=== PATIENT | female | born 1995 | race Caucasian/White ===

== ENCOUNTER 2021-05-21 09:14 | Inpatient (IN) ==
[2021-05-21] MEDS ORDERED: OXYTOCIN 30 UNITS/500 ML BAG IV PRN ×3 (09:21→23:59)
[2021-05-21 09:43] LABS: Hemoglobin 12.5 g/dL (12.0-16.0); Mean Corpuscular Hemoglobin 32.1 pg (25-34); Mean Corpuscular Hgb Conc 33.8 g/dL (32-36); Mean Corpuscular Volume 95.1 fL (80-100); Platelet Count 152 K/uL (130-400); RDW Coefficient of Variation 13.4 % (11.5-14.5); RDW Standard Deviation 46.8 fL (36.4-46.3); Red Blood Count 3.89 M/uL (4.2-5.4); White Blood Count 11.34 K/uL (4.8-10.8)
--- NOTE | 2021-05-21 09:50 | History & Physical Report ---
Date of Service May 21, 2021 Assessment & Plan (1) Insulin controlled gestational diabetes mellitus (GDM) during : (2) with 39 completed weeks gestation: (3) Large for gestational age fetus affecting management of mother: Plan: Admit. Plan pitocin induction, arom when indicated, epidural on demand. I explained again the entire situation with use of the video machine pack assembler. Discussed many possible options. 1. moves through labor without difficulty and able to push out fetus. Discussed would not instrument given concern for size of baby and risk for shoulder dystocia. If FTD would plan c/s. 2. discussed possibility for ftp and need for iupc to monitor pitocin. If then adequate and does not progress or cannot get adequate to progress would proceed with c/s. Again discussed can never tell whether a baby will fit out of a pelvis until try. Did discuss the possible risk of shoulder dystocia. Discussed the error of measurement of recent us was +/-20oz. She expressed that she would like attempt a anna. Declines primary c/s. Explained why I might recommend epidural to relax pelvis even if she was really not wanting one or not ready for one. Discussed that probably won't get very uncomfortable until after arom/rom. Discussed could get epidural prior to that if she thought she was going to want one for the labor. Patient understands that our anesthesia providers today are male. Will monitor blood sugars hourly. Admission and Anticipated Discharge Date Admission Date: May 21, 2021 History of Present Illness Chief Complaint: induction Primary Care Provider: Mena Sunshine PA-C Patient is a 26yo[place] female who presents to labor and delivery for induction of labor at 39 4/7 weeks secondary to insulin requiring GDM and suspected lga . complicated by GDM requiring insulin. Baby has always measured a little large. US at 37 6/7 weeks showed AC and EFW in 94 and 93%, with efw of *# 6oz, +/- 20 oz. She has had a successful vaginal delivery in the past of 6#6oz. Her cervix was not favorable and presented last evening for Santa bulb. Patient notes this fell out about 7am. Notes some occasional contractions and cramping after the bulb. +fm. no lof/vb. Lab Results OB Labs: Blood Type O Positive 10/14/20 Antibody Screen NEGATIVE 10/14/20 Hemoglobin 11.6 g/dL (12.0-16.0) L 03/19/21 Hematocrit 33.8 % (37-47) L 03/19/21 Mean Corpuscular Volume 90.8 fL (80-100) 10/14/20 Platelet Count 321 K/uL (130-400) 10/14/20 Rubella IgG Antibody Immune (Immune) 10/14/20 Rapid Plasma Reagin Nonreactive (Nonreactive) 10/14/20 Hepatitis B Surface Antigen Neg (Neg) 10/14/20 HIV (1&2) Ab and P24 Ag, 4th Gener Neg (Neg) 10/14/20 Glucose 1 Hour 50 gm Load 187 mg/dl (70-130) H 12/12/20 OB Optional Labs: Chlamydia trachomatis RNA NOT DETECTED (NOT DETECTED) 10/14/20 Neisseria gonorrhoeae RNA NOT DETECTED (NOT DETECTED) 10/14/20 Thyroid Stimulating Hormone (TSH) 1.280 uIu/ml (0.300-4.500) 07/24/20 Labs Reviewed: declines genetics Allergies Allergy/AdvReac Type Severity Reaction Status Date / Time No Known Allergies Allergy Verified 05/20/21 08:37 Home Medications Medication Instructions Recorded Confirmed Type acetone (urine) test (Ketone Urine #50 ea 03/27/21 05/20/21 Rx Test) blood sugar diagnostic (OneTouch #150 ea 03/27/21 05/20/21 Rx Verio test strips) blood-glucose meter (OneTouch #1 ea 03/27/21 05/20/21 Rx Verio Flex meter) lancets 33 gauge (OneTouch Delica #150 ea 03/27/21 05/20/21 Rx Plus Lancet) pen needle, diabetic 32 gauge x #100 ea 04/24/21 05/20/21 Rx 5/32" (BD Ultra-Fine Eboni Pen Needle) vits no.124-ferrous fum 1 tab PO DAILY 05/20/21 05/20/21 History 27 mg iron-folic acid 800 mcg tablet ( Vitamin) Patient History Medical History Varicella vaccination Surgical History S/P wisdom tooth extraction Family History Denies family history of Ovarian cancer Prostate cancer Myocardial infarction Breast cancer Colorectal cancer Social History Smoking Status: Never smoker Second Hand Exposure: No; Hx Alcohol Use: No Hx Substance Use: No Preferred Language: Kiswahili Communication Ability: Effective Hypoid Gear Tester Required: Yes Beliefs That Will Affect Care: Hoahaoism Hoahaoism Beliefs: prefers only female providers. Understands anesthesia providers may be male and agreeable. 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, no abnl paps Review of Systems All systems reviewed & are unremarkable except as noted in HPI & below Physical Exam Constitutional: WD/WN, vitals as above Gastrointestinal (Abdomen): soft, nt, gravid Psychiatric: A+Ox3, euthymic affect Genitourinary: cx--3.5/50/-2.mid/soft toco--occasional contraction efm--130s with mod variability, accels to 150s, no decels Results & Data ([facility]) Vital Signs (Past 12 Hours) Vital Signs Pulse BP 05/21/21 09:26 93 H 104/65 Code Status & VTE Plan VTE Prophylaxis Plan VTE Prophylaxis will be ordered: No Coding Level of Care Code None Diagnoses Insulin controlled gestational diabetes mellitus (GDM) during O24.414 with 39 completed weeks gestation Z3A.39 Large for gestational age fetus affecting management of mother O36.60X0
[2021-05-21] MEDS: LACTATED RINGER'S 1,000 ML IV PRN ×4 (10:32→21:33)
[2021-05-21] MEDS ORDERED: INSULIN REGULAR 250 UNITS in SODIUM CHLORIDE 0.9% 247.5 ML IV PRN (13:26)
[2021-05-21] MEDS ORDERED: SODIUM CHLORIDE 0.9% 1000ML 1,000 ML IV PRN (13:26)
[2021-05-21] MEDS ORDERED: DEXTROSE 50% 50 ML SYRINGE IV PRN (13:26)
--- NOTE | 2021-05-21 13:26 | Labor Progress Brief Note ---
Date of Service May 21, 2021 Subjective patient is noting some contractions. Assessment & Plan (1) Insulin controlled gestational diabetes mellitus (GDM) during : (2) Large for gestational age fetus affecting management of mother: Plan: discussed situation with the patient using the visual spanish interpreter/translator. My recommendation is to proceed with arom as really cannot do anything with pitocin at this point. She was ok with proceeding with that. Declines epidural prior, may have at any time. Fetus category one. BS are in the 60s pretty consistently despite juice, so will start diabetic protocol. She is asymptomatic. Admission and Anticipated Discharge Date Admission Date: May 21, 2021 Physical Exam Physical Exam: cx--unchanged arom--clear toco--q1-2min, pit at 8 , episodes of tachysystole efm--category one Results & Data ([facility]) Vital Signs (Past 12 Hours) Vital Signs Temp Pulse Resp BP 05/21/21 12:42 36.7 C 73 20 100/60 05/21/21 11:41 78 98/55 L 05/21/21 10:34 86 99/59 L 05/21/21 09:44 36.7 C 20 05/21/21 09:26 93 H 104/65 Coding Level of Care Code None Diagnoses Insulin controlled gestational diabetes mellitus (GDM) during O24.414 Large for gestational age fetus affecting management of mother O36.60X0
[2021-05-21] MEDS: DEXTROSE 5% 1,000 ML IV PRN ×2 (13:33→22:13)
[2021-05-21] MEDS ORDERED: ePHEDrine sulfate 50 MG/ML AMP ONE (16:13)
[2021-05-21] MEDS ORDERED: fentaNYL 2MCG/ML ROPIVACAINE 1.25MG/ML 100 ML BAG EPI ONE (16:14)
[2021-05-21] MEDS ORDERED: SODIUM CHLORIDE 0.9% INJ 10 ML VIAL ONE (16:14)
[2021-05-21] MEDS ORDERED: fentaNYL citrate 100 MCG/2 ML VIAL ONE (16:14)
[2021-05-21] MEDS ORDERED: BUPIVACAINE 0.25% 30 ML VIAL ONE (16:14)
--- NOTE | 2021-05-21 16:19 | Labor Progress Brief Note ---
Date of Service May 21, 2021 Subjective Patient uncomfortable and desires to be checked. Assessment & Plan (1) Large for gestational age fetus affecting management of mother: (2) Insulin controlled gestational diabetes mellitus (GDM) during : Plan: Discussed situation with patient using her to help interpret. Discussed it may yet be several hours. She requests epidural and will proceed. Fetus c ategory one. Admission and Anticipated Discharge Date Admission Date: May 21, 2021 Physical Exam Physical Exam: cx--/-2 toco--q2-3min, pit at 8 efm--130s with mod variability, accels to 160s, no decels Results & Data ([facility]) Vital Signs (Past 12 Hours) Vital Signs Temp Pulse Resp BP Pulse Ox 05/21/21 16:12 85 99 05/21/21 15:15 36.6 C 14 05/21/21 15:12 78 107/69 05/21/21 14:43 36.7 C 85 20 106/66 05/21/21 13:42 78 113/62 05/21/21 12:42 36.7 C 73 20 100/60 05/21/21 11:41 78 98/55 L 05/21/21 10:34 86 99/59 L 05/21/21 09:44 36.7 C 20 05/21/21 09:26 93 H 104/65 Coding Level of Care Code None Diagnoses Large for gestational age fetus affecting management of mother O36.60X0 Insulin controlled gestational diabetes mellitus (GDM) during O24.414
--- NOTE | 2021-05-21 16:25 | Anesthesiology Consultation ---
Date of Service May 21, 2021 Assessment & Plan (1) Encounter for pre-operative examination: Chart Review Chart Review: Acceptable Risk for Labor Epidural History Height/Weight Height: 5 ft 1.02 in Weight: 73.936 kg Allergies Allergy/AdvReac Type Severity Reaction Status Date / Time No Known Allergies Allergy Verified 05/20/21 08:37 Medications Home Medications Medication Instructions Recorded Confirmed Last Taken acetone (urine) test (Ketone Urine #50 ea 03/27/21 05/20/21 Unknown Test) blood sugar diagnostic (OneTouch #150 ea 03/27/21 05/20/21 Unknown Verio test strips) blood-glucose meter (OneTouch #1 ea 03/27/21 05/20/21 Unknown Verio Flex meter) lancets 33 gauge (OneTouch Delica #150 ea 03/27/21 05/20/21 Unknown Plus Lancet) pen needle, diabetic 32 gauge x #100 04/24/21 05/20/21 Unknown 5/32" (BD Ultra-Fine Eboni Pen Needle) vits no.124-ferrous fum 1 tab PO DAILY 05/20/21 05/21/21 05/20/21 08:00 27 mg iron-folic acid 800 mcg tablet ( Vitamin) Active Medications Generic Name Dose Route Start Last Admin Trade Name Freq PRN Reason Stop Dose Admin Lactated Ringer's 1,000 mls @ 125 mls/hr 05/21/21 09:21 05/21/21 14:47 Lr IV 05/23/21 09:20 125 mls/hr .Q8H PRN Administration L&D Protocol Protocol Oxytocin 30 units in 500 mls @ 8 mls/hr 05/21/21 09:31 05/21/21 12:20 Pitocin IV 05/23/21 09:30 0.48 units/hr .Q24H PRN 8 mls/hr Labor Induction/Augmentation Titration Protocol 0.48 UNITS/HR Dextrose 1,000 mls @ 100 mls/hr 05/21/21 13:26 05/21/21 14:46 D5w IV 06/20/21 13:25 100 mls/hr .Q10H PRN Infusion BSG 180 or below Protocol Past Medical History Medical History Varicella vaccination Past Family History Family History Denies family history of Ovarian cancer Prostate cancer Myocardial infarction Breast cancer Colorectal cancer Past Surgical History Surgical History S/P wisdom tooth extraction Social History Smoking Status: Never smoker Hx Alcohol Use: No Hx Substance Use: No substance use type: does not use Physical Exam Vital Signs Last Vital Signs Temp 36.6 C 05/21/21 15:15 Pulse 84 05/21/21 16:22 Resp 14 05/21/21 15:15 BP 107/69 05/21/21 15:12 Pulse Ox 99 05/21/21 16:22 Testing Laboratory Results 05/21/21 09:29 05/21/21 05/21/21 05/21/21 15:31 14:40 13:36 POC Glucose 80 84 73 05/21/21 05/21/21 05/21/21 13:21 13:20 12:16 POC Glucose 67 L* 65 L* 83 05/21/21 05/21/21 05/21/21 11:13 10:54 10:52 POC Glucose 70 65 L* 67 L* 05/21/21 09:51 POC Glucose 84
[2021-05-21] MEDS ORDERED: ePHEDrine sulfate 50 MG/ML AMP IV PRN (16:55)
[2021-05-21] MEDS ORDERED: fentaNYL 2MCG/ML ROPIVACAINE 1.25MG/ML 100 ML BAG EPI PRN (16:55)
[2021-05-21] MEDS ORDERED: NALOXONE HCL 0.4 MG/1 ML VIAL/CARP IV PRN (16:55)
[2021-05-21] MEDS ORDERED: ONDANSETRON INJ 2 MG/ML 2 ML VIAL IV PRN (16:55)
[2021-05-21] MEDS ORDERED: NALOXONE HCL 1 MG in SODIUM CHLORIDE 0.9% 1000ML 1,000 ML IV PRN (16:55)
--- NOTE | 2021-05-21 19:00 | Labor Progress Brief Note ---
Date of Service May 21, 2021 Subjective comfortable after epidural Assessment & Plan (1) Large for gestational age fetus affecting management of mother: (2) Insulin controlled gestational diabetes mellitus (GDM) during : Plan: continue current management. Is making slow change. Recheck in 1-2 hours, if no change then, plan iupc. Had previously discussed the possible need for this with the patient. Fetus category one. Admission and Anticipated Discharge Date Admission Date: May 21, 2021 Physical Exam Physical Exam: cx--/-2, some molding toco--q2-3min, pit at 8 efm--130s with mod variability, accels present , no decels. Results & Data ([facility]) Vital Signs (Past 12 Hours) Vital Signs Temp Pulse Resp BP Pulse Ox 05/21/21 18:52 79 99 05/21/21 18:48 84 92/59 L 05/21/21 18:47 71 98 05/21/21 18:42 69 98 05/21/21 18:37 69 99 05/21/21 18:34 87 96/56 L 05/21/21 18:32 98 H 99 05/21/21 18:30 18 05/21/21 18:27 72 98 05/21/21 18:22 69 99 05/21/21 18:17 66 103/62 98 05/21/21 18:12 69 99/58 L 98 05/21/21 18:07 73 98/60 L 99 05/21/21 18:02 74 98/55 L 99 05/21/21 18:00 18 05/21/21 17:57 75 92/51 L 99 05/21/21 17:53 74 99/57 L 05/21/21 17:52 79 99 05/21/21 17:47 68 97/55 L 99 05/21/21 17:42 74 102/59 L 99 05/21/21 17:37 70 101/55 L 99 05/21/21 17:33 75 98/57 L 05/21/21 17:32 75 99 05/21/21 17:30 16 05/21/21 17:28 82 95/53 L 05/21/21 17:27 81 100 05/21/21 17:22 74 96/54 L 99 05/21/21 17:17 78 99/55 L 99 05/21/21 17:14 83 100/61 05/21/21 17:12 82 99 05/21/21 17:07 79 100 05/21/21 17:06 75 102/58 L 05/21/21 17:04 74 101/58 L 05/21/21 17:02 72 101/58 L 100 05/21/21 17:00 36.7 C 77 18 91/56 L 05/21/21 16:58 75 88/51 L 05/21/21 16:57 73 99 05/21/21 16:56 78 93/50 L 05/21/21 16:54 77 91/54 L 05/21/21 16:52 64 93/56 L 99 05/21/21 16:50 71 100/62 05/21/21 16:48 77 104/57 L 05/21/21 16:47 96 H 99 05/21/21 16:42 76 100 05/21/21 16:41 87 89 L 05/21/21 16:37 88 100 05/21/21 16:32 96 H 100 05/21/21 16:27 76 99 05/21/21 16:22 84 99 05/21/21 16:17 88 100 05/21/21 16:12 85 99 05/21/21 15:15 36.6 C 14 05/21/21 15:12 78 107/69 05/21/21 14:43 36.7 C 85 20 106/66 05/21/21 13:42 78 113/62 05/21/21 12:42 36.7 C 73 20 100/60 05/21/21 11:41 78 98/55 L 05/21/21 10:34 86 99/59 L 05/21/21 09:44 36.7 C 20 05/21/21 09:26 93 H 104/65 Coding Level of Care Code None Diagnoses Large for gestational age fetus affecting management of mother O36.60X0 Insulin controlled gestational diabetes mellitus (GDM) during O24.414
--- NOTE | 2021-05-21 20:07 | Labor Progress Brief Note ---
Date of Service May 21, 2021 Subjective comfortable after epidural, but starting to feel some contractions. Assessment & Plan (1) Large for gestational age fetus affecting management of mother: (2) Insulin controlled gestational diabetes mellitus (GDM) during : Plan: continue current management. Continues to make change. Fetus category one. Admission and Anticipated Discharge Date Admission Date: May 21, 2021 Physical Exam Physical Exam: cx--7/100/-1, some molding toco--q2-3min, pit at 10 efm--130s with mod variability, accels present , no decels. Constitutional: WD/WN, vitals as above Psychiatric: A+Ox3, euthymic affect Results & Data ([facility]) Vital Signs (Past 12 Hours) Vital Signs Temp Pulse Resp BP Pulse Ox 05/21/21 20:03 70 108/63 99 05/21/21 19:58 67 99 05/21/21 19:53 66 98 05/21/21 19:48 70 97/59 L 99 05/21/21 19:43 85 98 05/21/21 19:38 65 99 05/21/21 19:33 88 91/55 L 99 05/21/21 19:30 16 05/21/21 19:28 69 99 05/21/21 19:26 36.8 C 05/21/21 19:23 70 99 05/21/21 19:18 108 H 95/59 L 98 05/21/21 19:12 78 98 05/21/21 19:07 70 98 05/21/21 19:03 77 94/59 L 05/21/21 19:02 87 98 05/21/21 19:00 16 05/21/21 18:57 83 98 05/21/21 18:52 79 99 05/21/21 18:48 84 92/59 L 05/21/21 18:47 71 98 05/21/21 18:42 69 98 05/21/21 18:37 69 99 05/21/21 18:34 87 96/56 L 05/21/21 18:32 98 H 99 05/21/21 18:30 18 05/21/21 18:27 72 98 05/21/21 18:22 69 99 05/21/21 18:17 66 103/62 98 05/21/21 18:12 69 99/58 L 98 05/21/21 18:07 73 98/60 L 99 05/21/21 18:02 74 98/55 L 99 05/21/21 18:00 18 05/21/21 17:57 75 92/51 L 99 05/21/21 17:53 74 99/57 L 05/21/21 17:52 79 99 05/21/21 17:47 68 97/55 L 99 05/21/21 17:42 74 102/59 L 99 05/21/21 17:37 70 101/55 L 99 05/21/21 17:33 75 98/57 L 05/21/21 17:32 75 99 05/21/21 17:30 16 05/21/21 17:28 82 95/53 L 05/21/21 17:27 81 100 05/21/21 17:22 74 96/54 L 99 05/21/21 17:17 78 99/55 L 99 05/21/21 17:14 83 100/61 05/21/21 17:12 82 99 05/21/21 17:07 79 100 05/21/21 17:06 75 102/58 L 05/21/21 17:04 74 101/58 L 05/21/21 17:02 72 101/58 L 100 05/21/21 17:00 36.7 C 77 18 91/56 L 05/21/21 16:58 75 88/51 L 05/21/21 16:57 73 99 05/21/21 16:56 78 93/50 L 05/21/21 16:54 77 91/54 L 05/21/21 16:52 64 93/56 L 99 05/21/21 16:50 71 100/62 05/21/21 16:48 77 104/57 L 05/21/21 16:47 96 H 99 05/21/21 16:42 76 100 05/21/21 16:41 87 89 L 05/21/21 16:37 88 100 05/21/21 16:32 96 H 100 05/21/21 16:27 76 99 05/21/21 16:22 84 99 05/21/21 16:17 88 100 05/21/21 16:12 85 99 05/21/21 15:15 36.6 C 14 05/21/21 15:12 78 107/69 05/21/21 14:43 36.7 C 85 20 106/66 05/21/21 13:42 78 113/62 05/21/21 12:42 36.7 C 73 20 100/60 05/21/21 11:41 78 98/55 L 05/21/21 10:34 86 99/59 L 05/21/21 09:44 36.7 C 20 05/21/21 09:26 93 H 104/65 Coding Level of Care Code None Diagnoses Large for gestational age fetus affecting management of mother O36.60X0 Insulin controlled gestational diabetes mellitus (GDM) during O24.414
--- NOTE | 2021-05-21 22:04 | Labor Progress Brief Note ---
Date of Service May 21, 2021 Subjective notes contractions in upper uterus and on left, declines increasing epidural. Assessment & Plan (1) Large for gestational age fetus affecting management of mother: Plan: Will begin stage two. fetus category two but reassuring. Admission and Anticipated Discharge Date Admission Date: May 21, 2021 Physical Exam Physical Exam: cx--c/c/+1 toco--q1-2min, pit at 10 efm--130s with mod variability, small accels, variables with contractions [facility] & Data ([facility]) Vital Signs (Past 12 Hours) Vital Signs Temp Pulse Resp BP Pulse Ox 05/21/21 21:58 87 100 05/21/21 21:53 68 99 05/21/21 21:48 64 103/66 98 05/21/21 21:43 66 98 05/21/21 21:38 75 99 05/21/21 21:33 75 99 05/21/21 21:32 97 H 102/64 05/21/21 21:30 16 05/21/21 21:28 70 99 05/21/21 21:23 80 99 05/21/21 21:18 70 99 05/21/21 21:17 78 103/58 L 05/21/21 21:15 36.7 C 05/21/21 21:13 80 99 05/21/21 21:08 74 100 05/21/21 21:03 72 97/62 L 99 05/21/21 21:00 18 05/21/21 20:58 83 99 05/21/21 20:53 72 99 05/21/21 20:48 70 110/63 99 05/21/21 20:43 74 98 05/21/21 20:38 67 99 05/21/21 20:33 73 99 05/21/21 20:32 73 108/64 05/21/21 20:30 16 05/21/21 20:28 73 99 05/21/21 20:23 69 99 05/21/21 20:19 75 102/63 05/21/21 20:18 72 98 05/21/21 20:13 84 98 05/21/21 20:08 65 99 05/21/21 20:03 70 108/63 99 05/21/21 20:00 18 05/21/21 19:58 67 99 05/21/21 19:53 66 98 05/21/21 19:48 70 97/59 L 99 05/21/21 19:43 85 98 05/21/21 19:38 65 99 05/21/21 19:33 88 91/55 L 99 05/21/21 19:30 16 05/21/21 19:28 69 99 05/21/21 19:26 36.8 C 05/21/21 19:23 70 99 05/21/21 19:18 108 H 95/59 L 98 05/21/21 19:12 78 98 05/21/21 19:07 70 98 05/21/21 19:03 77 94/59 L 05/21/21 19:02 87 98 05/21/21 19:00 16 05/21/21 18:57 83 98 05/21/21 18:52 79 99 05/21/21 18:48 84 92/59 L 05/21/21 18:47 71 98 05/21/21 18:42 69 98 05/21/21 18:37 69 99 05/21/21 18:34 87 96/56 L 05/21/21 18:32 98 H 99 05/21/21 18:30 18 05/21/21 18:27 72 98 05/21/21 18:22 69 99 05/21/21 18:17 66 103/62 98 05/21/21 18:12 69 99/58 L 98 05/21/21 18:07 73 98/60 L 99 05/21/21 18:02 74 98/55 L 99 05/21/21 18:00 18 05/21/21 17:57 75 92/51 L 99 05/21/21 17:53 74 99/57 L 05/21/21 17:52 79 99 05/21/21 17:47 68 97/55 L 99 05/21/21 17:42 74 102/59 L 99 05/21/21 17:37 70 101/55 L 99 05/21/21 17:33 75 98/57 L 05/21/21 17:32 75 99 05/21/21 17:30 16 05/21/21 17:28 82 95/53 L 05/21/21 17:27 81 100 05/21/21 17:22 74 96/54 L 99 05/21/21 17:17 78 99/55 L 99 05/21/21 17:14 83 100/61 05/21/21 17:12 82 99 05/21/21 17:07 79 100 05/21/21 17:06 75 102/58 L 05/21/21 17:04 74 101/58 L 05/21/21 17:02 72 101/58 L 100 05/21/21 17:00 36.7 C 77 18 91/56 L 05/21/21 16:58 75 88/51 L 05/21/21 16:57 73 99 05/21/21 16:56 78 93/50 L 05/21/21 16:54 77 91/54 L 05/21/21 16:52 64 93/56 L 99 05/21/21 16:50 71 100/62 05/21/21 16:48 77 104/57 L 05/21/21 16:47 96 H 99 05/21/21 16:42 76 100 05/21/21 16:41 87 89 L 05/21/21 16:37 88 100 05/21/21 16:32 96 H 100 05/21/21 16:27 76 99 05/21/21 16:22 84 99 05/21/21 16:17 88 100 05/21/21 16:12 85 99 05/21/21 15:15 36.6 C 14 05/21/21 15:12 78 107/69 05/21/21 14:43 36.7 C 85 20 106/66 05/21/21 13:42 78 113/62 05/21/21 12:42 36.7 C 73 20 100/60 05/21/21 11:41 78 98/55 L 05/21/21 10:34 86 99/59 L Coding Level of Care Code None Diagnoses Large for gestational age fetus affecting management of mother O36.60X0
[2021-05-21] MEDS ORDERED: oxyCODONE/ACETAMINOPHEN 5mg/325mg TAB PO PRN (23:58)
[2021-05-21] MEDS ORDERED: ACETAMINOPHEN 325 MG TAB PO PRN (23:58)
[2021-05-21] MEDS ORDERED: bisacodyL 10 MG SUPP PR PRN (23:59)
[2021-05-21] MEDS ORDERED: SUPERCREAM 0.870% 15 GM JAR EXT PRN (23:59)
[2021-05-21] MEDS ORDERED: METHYLERGONOVINE MALEATE 0.2 MG/ML AMP IM ONE (23:59)
[2021-05-21] MEDS ORDERED: BENZOCAINE 20% AER SPR 82.5 GM CAN EXT PRN (23:59)
[2021-05-21] MEDS ORDERED: HYDROCORTISONE ACETATE 25 MG SUPP PR PRN (23:59)
[2021-05-21] MEDS ORDERED: DIPHTHERIA/TETANUS/PERTUSSIS 0.5 ML SYR/VIAL IM ONE (23:59)
[2021-05-22] MEDS ORDERED: BENZOCAINE 20% AER SPR 82.5 GM CAN EXT PRN
[2021-05-22] MEDS ORDERED: SUPERCREAM 0.870% 15 GM JAR EXT PRN
--- NOTE | 2021-05-22 00:05 | Delivery Summary ---
Vaginal Delivery Summary Date of Service May 22, 2021 Pre-operative Diagnosis: at 39 4/7 weeks insulin requiring GDM LGA Post-operative Diagnosis: same Procedure: kowalski bulb pitocin induciton arom epidural third degree laceration and repair EBL: 400cc Anesthesia: epidural Procedure: The patient pushed for 1.5 hours to deliver a viable male infant in juan position. thick meconium noted after delivery of the head. Nuchal cord x 1 easily reduced. The anterior shoulder was then easily delivered and the rest of the baby followed. The baby was vigorous. The nose and mouth were bulb suctioned and the was placed in the maternal abdomen for drying and attention. Cord was clamped and cut at one minute of life. Cord blood and segment obtained. Placenta delivered spontaneous, intact with a three vessel cord. Cervix/sulci/rectum were intact. A third degree perineal laceration was repaired in the normal standard fashion with 2-0 vicryl for the sphincter and 3- 0 for the vagina and perineum. Hemostasis obtained with dilute pitocin and fundal massage and one dose of IM methergine. Apgars were 9/9. Mother and baby doing well at the end of the delivery. Vaginal Delivery Summary and 3rd Degree LAC [facility] Vaginal Delivery Charge Vaginal Delivery Codes: 50200 global code for the antepartum, delivery, and post- Delivery Type Details: and 3rd Degree LAC
[2021-05-22] MEDS ORDERED: ONDANSETRON INJ 2 MG/ML 2 ML VIAL IV PRN (00:29)
[2021-05-22 06:28] LABS: Hematocrit (blood only) 38.5 % (37-47); Hemoglobin 12.9 g/dL (12.0-16.0)
[2021-05-22] MEDS: IBUPROFEN 600 MG TAB PO PRN ×4 (06:43→21:49)
--- NOTE | 2021-05-22 07:28 | Obstetrical Progress Note ---
Date of Service May 22, 2021 Assessment & Plan (1) Spontaneous vaginal delivery: (2) Third degree laceration of perineum during delivery, : Doing well this morning. Discussed pain management for her bottom. Encouraged ambulation. Questions answered with visual primary care md. Subjective Ambulation: limited ambulation Voiding: no voiding problems Passing Gas:: Yes Diet Tolerance:: regular diet Lochia:: Small Feeding Type:: breast feeding Patient notes her bottom is very sore. Has not been using ice. Tolerated diet. Voided without difficulty. Feels bloated. Physical Exam Constitutional WD/WN, vitals as above Neck trachea midline, no thyromegaly Respiratory normal respiratory effort, lungs clear to auscultation Cardiovascular RRR, no murmur, no edema Extremities: + edema (tr-+1); no calf tenderness Gastrointestinal (Abdomen) normal bowel sounds, soft, nontender, no hepatosplenomegaly ff/nt at u Psychiatric A+Ox3, euthymic affect Results & Data ([facility]) Vital Signs (Past 12 Hours) Vital Signs Temp Pulse Pulse Resp BP BP Pulse Ox 05/22/21 03:30 37.1 C 77 16 96/65 L 05/22/21 02:17 86 102/56 L 05/22/21 02:02 86 102/55 L 05/22/21 01:47 90 103/58 L 05/22/21 01:32 84 107/59 L 05/22/21 01:17 74 113/59 L 05/22/21 01:02 90 106/55 L 05/22/21 00:47 79 111/65 05/22/21 00:32 72 114/61 05/22/21 00:21 66 113/61 05/22/21 00:02 74 108/77 05/21/21 23:58 94 H 98 05/21/21 23:53 102 H 99 05/21/21 23:48 97 H 99 05/21/21 23:47 91 H 104/67 05/21/21 23:43 88 100 05/21/21 23:38 90 100 05/21/21 23:33 88 100 05/21/21 23:32 86 97/54 L 05/21/21 23:28 98 H 97 05/21/21 23:23 92 H 98 05/21/21 23:18 97 H 112/53 L 98 05/21/21 23:16 93 H 87 L 05/21/21 23:13 78 93 05/21/21 23:10 81 85 L 05/21/21 23:08 83 93 05/21/21 23:05 36.8 C 18 05/21/21 23:04 78 87 L 05/21/21 23:03 81 96 05/21/21 22:58 76 97 05/21/21 22:54 101 H 88 L 05/21/21 22:53 103 H 96 05/21/21 22:49 77 87 L 05/21/21 22:48 76 108/54 L 98 05/21/21 22:43 89 98 05/21/21 22:42 81 88 L 05/21/21 22:38 85 99 05/21/21 22:34 88 112/55 L 05/21/21 22:33 97 H 98 05/21/21 22:30 16 05/21/21 22:28 93 H 98 05/21/21 22:23 85 99 05/21/21 22:22 75 85 L 05/21/21 22:20 76 100/58 L 05/21/21 22:18 82 99 05/21/21 22:13 76 99 05/21/21 22:08 76 100 05/21/21 22:03 77 99 05/21/21 22:02 74 112/72 05/21/21 22:00 20 05/21/21 21:58 87 100 05/21/21 21:53 68 99 05/21/21 21:48 64 103/66 98 05/21/21 21:43 66 98 05/21/21 21:38 75 99 05/21/21 21:33 75 99 05/21/21 21:32 97 H 102/64 05/21/21 21:30 16 05/21/21 21:28 70 99 05/21/21 21:23 80 99 05/21/21 21:18 70 99 05/21/21 21:17 78 103/58 L 05/21/21 21:15 36.7 C 05/21/21 21:13 80 99 05/21/21 21:08 74 100 05/21/21 21:03 72 97/62 L 99 05/21/21 21:00 18 05/21/21 20:58 83 99 05/21/21 20:53 72 99 05/21/21 20:48 70 110/63 99 05/21/21 20:43 74 98 05/21/21 20:38 67 99 05/21/21 20:33 73 99 05/21/21 20:32 73 108/64 05/21/21 20:30 16 05/21/21 20:28 73 99 05/21/21 20:23 69 99 05/21/21 20:19 75 102/63 05/21/21 20:18 72 98 05/21/21 20:13 84 98 05/21/21 20:08 65 99 05/21/21 20:03 70 108/63 99 05/21/21 20:00 18 05/21/21 19:58 67 99 05/21/21 19:53 66 98 05/21/21 19:48 70 97/59 L 99 05/21/21 19:43 85 98 05/21/21 19:38 65 99 05/21/21 19:33 88 91/55 L 99 05/21/21 19:30 16 05/21/21 19:28 69 99
[2021-05-22] MEDS ORDERED: PRENATAL VITAMIN 1 TAB PO SCH (08:00)
[2021-05-22] MEDS ORDERED: DOCUSATE SODIUM 100 MG CAP PO SCH (08:00)
[2021-05-22] MEDS: PRENATAL VITAMIN 1 TAB PO SCH (08:40)
[2021-05-22] MEDS: DOCUSATE SODIUM 100 MG CAP PO SCH ×2 (08:40→21:49)
--- NOTE | 2021-05-22 09:25 | Anesthesia Procedure Note ---
Date of Service May 22, 2021 Anesthesia Post Epidural Note Vital Signs Vital Signs: Temp Pulse Resp BP Pulse Ox 37 C 69 18 106/70 98 05/22/21 07:30 05/22/21 07:30 05/22/21 07:30 05/22/21 07:30 05/22/21 07:30 Pain Intensity Bilateral Abdomen: Pain Intensity: 2 Perineal: Pain Intensity: 1 Notes Mental Status: alert / awake / arousable Nausea / Vomiting: adequately controlled Pain: adequately controlled Airway Patency, RR, SpO2: stable & adequate BP & HR: stable & adequate Hydration State: stable & adequate Neuraxial Anesthesia: was administered and sensory block is resolving Anesthetic Complications: no major complications apparent and Pt Satisfied with anesthetic care Epidural: Removed without complications and With tip intact
[2021-05-22] MEDS ORDERED: bisacodyL 5 MG TABEC PO SCH (20:00)
--- NOTE | 2021-05-23 07:44 | Obstetrical Progress Note ---
Date of Service May 23, 2021 Assessment & Plan (1) Encounter for care and examination after delivery: satisfactory course discharge to home follow up in 6 weeks Day #:: 2 Subjective Ambulation: ambulating normally Voiding: no voiding problems Passing Gas:: Yes Diet Tolerance:: regular diet Lochia:: Small Feeding Type:: breast feeding Review of Systems All systems reviewed & are unremarkable except as noted in HPI & below Physical Exam Constitutional WD/WN, vitals as above Cardiovascular Extremities: no calf tenderness Psychiatric A+Ox3, euthymic affect Genitourinary OB Exam Abdomen: + fundal height (2 below U) Fundus: + firm; not tender Results & Data ([facility]) Vital Signs (Past 12 Hours) Vital Signs Temp Pulse Resp BP Pulse Ox 05/23/21 00:00 97.7 F 86 18 97/59 L 98 05/22/21 20:00 98.1 F 84 18 112/77 97
[2021-05-23] MEDS: DOCUSATE SODIUM 100 MG CAP PO SCH (09:09)
[2021-05-23] MEDS: PRENATAL VITAMIN 1 TAB PO SCH (09:10)
== END 2021-05-23 13:35 | disposition home or self-care (01) | DRG 768 ==
LOC: 4S1 09:14 → 4S2 05-22 02:30